=== PATIENT | male | born 1985 | race Caucasian/White ===

== ENCOUNTER 2017-11-09 16:31 | Emergency (ER) | payer MEDICAID ==
[~2017-11-09] VITALS: Ht 182.9 cm; Wt 161.5 kg
[2017-11-09 17:04] VITALS: BP 155/104
--- NOTE | 2017-11-09 19:15 | NUR ---
Patient ambulated to bed 2 with family. RN evaluating patient at bedside.
--- NOTE | 2017-11-09 19:16 | NUR ---
PATIENT IS A 32 Y/O MALE WHO PRESENTS TO THE ED C/O LOW BACK PAIN. PT STATES, "I HURT MY BACK ABOUT FOUR YEARS AGO AND SINCE THEN THE PAIN COMES AND GOES." PT REPORTS 10/10 SHARP PAIN ON THE RIGHT LOWER BACK THAT RADIATES TO THE CALF. PT DENIES CP, SOB, N/V/D. PT REPORTS NUMBNESS AND TINGLING. PT AAOX4, RR EVEN/UNLABORED. PT REPOSITIONED FOR COMFORT, BED IN LOWEST POSITION. ER MD DR. HANLEYIST NOTIFIED. WILL CONTINUE TO MONITOR.
--- NOTE | 2017-11-09 19:43 | NUR ---
Patient being evaluated by physician at bedside.
[2017-11-09] MEDS ORDERED: KETOROLAC 60 MG/2 ML VIAL IM ONE (19:45)
[2017-11-09] MEDS ORDERED: METHOCARBAMOL 500 MG TAB PO SCH (19:45)
[2017-11-09 20:16] VITALS: BP 149/81
--- NOTE | 2017-11-09 20:16 | NUR ---
Patient discharged with v/s stable. Written and verbal after care instructions given and explained. Patient alert, oriented and verbalized understanding of instructions. Ambulatory with steady gait. All questions addressed prior to discharge. ID band removed. Patient advised to follow up with PMD. Rx of MOTRIN, ROBAXIN AND LIDODERM 5% PATCHES given. Patient educated on indication of medication including possible reaction and side effects. Opportunity to ask questions provided and answered.
== END 2017-11-09 20:16 | disposition home or self-care (01) ==
LOC: MED 16:31
DX: M54.41 Lumbago with sciatica, right side (principal); I10 Essential (primary) hypertension; Z88.5 Allergy status to narcotic agent; F12.10 Cannabis abuse, uncomplicated
CPT/HCPCS: 96372; 99283; J1885

== ENCOUNTER 2019-01-08 13:00 | Emergency (ER) | payer SELFPAY ==
[~2019-01-08] VITALS: Ht 188 cm; Wt 166.6 kg
[2019-01-08 13:04] VITALS: BP 184/85
--- NOTE | 2019-01-08 13:15 | NUR ---
PATIENT AMBULATED TO ER BED 11.
--- NOTE | 2019-01-08 13:25 | NUR ---
PT IS A 33 Y/O MALE WHO PRESENTS TO THE ED C/O LOW BACK PAIN. PT STATES THAT HE HAS A LOW BACK INJURY X5 YEARS AGO. 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 PT REPORTS 10/10 SHARP LOWER BACK PAIN THAT DOES NOT RADIATE. NO OBVIOUS TRAUMA/DEFORMITY. PT DENIES CP, SOB, N/V/D. PT AWAKE AND ALERT, RR EVEN/UNLABORED. PT REPOSITIONED FOR COMFORT, BED IN LOWEST POSITION. ER MD DR. LANDA NOTIFIED. WILL CONTINUE TO MONITOR. HX HTN RX DENIES, STOPPED TAKING BP MEDS BECAUSE HE "LIKES TO DRINK"
--- NOTE | 2019-01-08 13:29 | NUR ---
Patient being evaluated by physician at bedside.
--- NOTE | 2019-01-08 13:29 | NUR ---
DR. LANDA EVALUATING PATIENT.
[2019-01-08] MEDS ORDERED: KETOROLAC 60 MG/2 ML VIAL IM ONE (13:35)
--- NOTE | 2019-01-08 13:40 | NUR ---
PATIENT REPORT GIVEN TO ANGELY GODINEZ. TRANSFER OF CARE AT THIS TIME.
[2019-01-08 14:18] VITALS: BP 138/78
--- NOTE | 2019-01-08 14:19 | NUR ---
Patient discharged with v/s stable. Written and verbal after care instructions given and explained. Patient alert, oriented and verbalized understanding of instructions. Ambulatory with steady gait. All questions addressed prior to discharge. ID band removed. Patient advised to follow up with PMD. Rx of TRAMADOL AND MOTRIN given. Patient educated on indication of medication including possible reaction and side effects. Opportunity to ask questions provided and answered.
== END 2019-01-08 14:19 | disposition home or self-care (01) ==
LOC: MED 13:00
DX: M54.41 Lumbago with sciatica, right side (principal); Z88.5 Allergy status to narcotic agent; Z98.890 Other specified postprocedural states
CPT/HCPCS: 96372; 99283; J1885